=== PATIENT | female | born 2000 | race Caucasian/White ===

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

== ENCOUNTER 2021-04-29 18:14 | Emergency (ER) | payer BC, MEDICAID ==
[~2021-04-29] VITALS: Ht 162 cm; Wt 61.0 kg
[~2021-04-29 18:14] MED LIST: NAPR-915 PO; NITR-65 PO
[2021-04-29 18:18] VITALS: BP 126/88
[2021-04-29] MEDS ORDERED: ONDA4TAB11 PO (18:37)
--- NOTE | 2021-04-29 18:38 | ED Cough/URI ---
General Chief Complaint: Cough/Cold/Flu Symptoms Stated Complaint: VOMITING, SOB, MUSCLE ACHES Source: patient Exam Limitations: no limitations History of Present Illness Date Seen by Provider: Apr 29, 2021 Time Seen by Provider: 18:25 Initial Comments Patient is a 20-year-old female who presents to the emergency department today with a chief complaint of cough, shortness of breath body aches, nausea vomiting, a little diarrhea, loss of taste and smell. Patient states symptom onset was about 5 days ago. She states her little girl was recently diagnosed with Covid and just finished her quarantine yesterday. Patient is also had contact with her mother who has Covid pneumonia. She is not vaccinated. She is currently about 21 weeks with an estimated due date of 09/03/2021. No complaints of dysuria, urgency frequency or abnormal vaginal discharge. All other review of systems reviewed and negative except as stated. Timing/Duration: week Severity/Quality: mild, dry cough Associated Symptoms: cough, lightheadedness, muscle aches, shortness of breath Allergies and Home Medications Allergies Coded Allergies: No Known Drug Allergies (Unverified , 06/24/17) Home Medications Naproxen 500 Mg Tablet, 500 MG PO BID Prescribed by: JANNET RECINOS on 06/25/17 001 Nitrofurantoin Monohyd/M-Cryst 100 Mg Capsule, 100 MG PO BID Prescribed by: JANNET RECINOS on 06/25/1711 Ondansetron 4 Mg Tab.rapdis, 4 MG PO Q8H PRN for nausea Prescribed by: FEDERICO DÍAZ on 04/29/21 1837 Patient Home Medication List Home Medication List Reviewed: Yes Review of Systems Review of Systems Constitutional: see HPI EENTM: no symptoms reported Respiratory: cough, short of breath Cardiovascular: no symptoms reported Gastrointestinal: diarrhea, nausea Genitourinary: no symptoms reported : Yes Expected Date of Delivery: Sep 03, 2021 Musculoskeletal: muscle cramps Skin: no symptoms reported All Other Systems Reviewed Negative Unless Noted: Yes Past Ijqzcjl-Wvewex-Wzwzvb Hx Patient Social History Tobacco Use?: No Smoking Status: Never a Smoker Substance use?: No Alcohol Use?: No Pt feels they are or have been: No Immunizations Up To Date First/Initial COVID19 Vaccinat: 03/13/2021 COVID19 Vaccine Virtualization Consultant: Comfy Seasonal Allergies Seasonal Allergies: No Past Medical History Surgeries: No Respiratory: No Cardiac: No Neurological: No Genitourinary: No Gastrointestinal: No Musculoskeletal: No Endocrine: No HEENT: No Cancer: No Psychosocial: No Integumentary: No Blood Disorders: No Physical Exam Vital Signs - First Documented 04/29/21 18:18 Temp 37.1 Pulse 104 Resp 18 B/P (MAP) 126/88 (101) Pulse Ox 98 O2 Delivery Room Air Capillary Refill : Height: 5'2.00" Weight: 110lbs. oz. 49.034656ye; 14.06 BMI Method:Estimated General Appearance: WD/WN, no apparent distress Eyes: Bilateral Eye Normal Inspection, Bilateral Eye PERRL, Bilateral Eye EOMI Neck: full range of motion, supple, normal inspection Respiratory: lungs clear, normal breath sounds, no respiratory distress, no accessory muscle use Cardiovascular: regular rate, rhythm, tachycardia (105) Gastrointestinal: non tender, soft Neurologic/Psychiatric: alert, normal mood/affect, oriented x 3 Skin: normal color, warm/dry Progress/Results/Core Measures Suspected Sepsis SIRS Temperature: Pulse: Respiratory Rate: Blood Pressure / Mean: Results/Orders Lab Results Laboratory Tests Test 04/29/21 18:25 Range/Units SARS-CoV-2 RNA (RT-PCR) Detected H Not Detecte My Orders Orders - FEDERICO DÍAZ MD Covid 19 Inhouse Test (04/29/21 18:27) Vital Signs/I&O 04/29/21 04/29/21 18:18 18:18 Temp 37.1 Pulse 104 Resp 18 B/P (MAP) 126/88 (101) Pulse Ox 98 O2 Delivery Room Air Room Air Capillary Refill : Progress Note : Time: 18:54 Progress Note heart tones 145. Patient's vital signs are all normal, oxygen saturations 98 to 99% on room air. She is not tachypneic. Heart rate is 104. Blood pressure is good. Departure Impression Primary Impression: COVID-19 Disposition: 01 HOME, SELF-CARE Condition: Stable Departure-Patient Inst. Referrals: NO,LOCAL PHYSICIAN (PCP) Primary Care Physician DUGLAS WOOD DO Patient Instructions: COVID-19 (DC) Add. Discharge Instructions: Drink plenty of fluids to stay well-hydrated. You will need to quarantine for a total of 10 days. Use the Zofran, 4 mg tablets, every 8 hours as needed for nausea and vomiting. You can take [id number] Tylenol extra strength, 2 tablets every 4-6 hours as needed for body aches. Keep your follow-up appointments with Dr. Wood. Return to the emergency department for any new, concerning or worsening symptoms. All discharge instructions reviewed with patient and/or family. Voiced understanding. Scripts Ondansetron (Ondansetron Odt) 4 Mg Tab.rapdis 4 MG PO Q8H PRN for nausea, #20 TAB Prov: FEDERICO DÍAZ MD 04/29/21 FEDERICO DÍAZ MD Apr 29, 2021 18:38
== END 2021-04-29 19:00 | disposition home or self-care (01) ==
LOC: EDUNIT# 18:14 → ER 18:16
DX: O98.512 Other viral diseases complicating pregnancy, second trimester (principal); U07.1 COVID-19; Z3A.21 21 weeks gestation of pregnancy
CPT/HCPCS: 87636

== ENCOUNTER 2021-05-17 21:19 | Outpatient (CLI) | payer MEDICAID ==
[~2021-05-17] VITALS: Ht 162.6 cm; Wt 61.7 kg
[~2021-05-17 21:19] MED LIST changes: +ONDA4TAB11 PO
[2021-05-17] MEDS ORDERED: PREN-142 PO (21:47)
[2021-05-17 21:53] VITALS: BP 121/66
[2021-05-17 21:54] VITALS: BP 121/66
[2021-05-17 22:04] LABS: BILIRUBIN,URINE NEGATIVE (NEGATIVE); CLARITY,URINE CLEAR; COLOR,URINE YELLOW; GLUCOSE, URINE (UA) NEGATIVE (NEGATIVE); KETONES,URINE NEGATIVE (NEGATIVE); LEUKOCYTE ESTERASE ,URINE NEGATIVE (NEGATIVE); NITRITE,URINE NEGATIVE (NEGATIVE); PROTEIN,URINE TRACE (NEGATIVE)
[2021-05-17 22:19] LABS: BACTERIA,URINE MODERATE /HPF
--- NOTE | 2021-05-18 08:16 | Physician Query-Final Dx ---
DAVID AHMADI 05/18/21 0816: Clinic Account Progress/Dx Physician Query: Please give diagnosis Please include # weeks gestation Date of Service May 17, 2021 at 21:19 JOSEMANUEL HUNTER DO 05/18/21 0844: Clinic Account Progress/Dx DIAGNOSIS: Diagnosis 23 week IUP Back pain and pelvic discomfort DAVID AHMADI May 18, 2021 08:16 JOSEMANUEL HUNTER DO May 18, 2021 08:44
== END 2021-05-17 22:33 | disposition home or self-care (01) ==
LOC: WSo 21:19 → LDRP 21:19 → WSo 22:33
PROVIDERS: ATTEND Obstetrics & Gynecology
DX: O26.892 Other specified pregnancy related conditions, second trimester (principal); M54.9 Dorsalgia, unspecified; R10.2 Pelvic and perineal pain; Z3A.24 24 weeks gestation of pregnancy
CPT/HCPCS: 81000; 87088; G0463; 99212

== ENCOUNTER → 2021-05-22 | Outpatient (CLI) | payer MEDICAID ==
[~2021-05-22] MED LIST changes: +PREN-142 PO
--- NOTE | 2021-05-22 15:02 | Diagnostic Imaging Report ---
INDICATION: care. TECHNIQUE: Multiple real-time grayscale images were obtained over the gravid uterus. COMPARISON: None FINDINGS: There is a single live fetus in a cephalic presentation. heart rate was recorded at 143 bpm. Placenta is anterior. Amniotic fluid volume is normal. Cervical length is 4.1 cm. survey does demonstrate some questionable dilatation of the lateral ventricles measuring up to 13 mm. Kidneys, bladder and stomach are unremarkable. There is a four-chamber heart. There is a three-vessel cord with normal insertion. spine is unremarkable. Biometrical measurements are as follows: Biparietal 5.96 cm, age 24 weeks 3 days. Head circumference 21.29 cm, age 23 weeks 3 days. Abdominal circumference 19.80 cm, age 24 weeks 4 days. Femur length 3.88 cm, age 22 weeks 4 days. Sonographic estimate age: 23 weeks 6 days. Sonographic estimated date of delivery: 09/12/2021. Estimated Weight: 611 gm (+/- 89 gm). LMP percentile: 3%. heart rate: 143 beats per minute. number: 1 of 1. IMPRESSION: 1. Single live IUP measuring 23 weeks 6 days gestational age. Estimated date of confinement sonographically is 09/12/2021. 2. Findings suggestive of lateral ventricle dilatation. Close follow-up is recommended. Dictated by: Dictated on workstation # [id number]
== END ==
LOC: RAD 11:00
PROVIDERS: ATTEND Obstetrics & Gynecology
DX: Z34.92 Encounter for supervision of normal pregnancy, unspecified, second trimester (principal); Z3A.23 23 weeks gestation of pregnancy
CPT/HCPCS: 76805

== ENCOUNTER 2021-07-15 20:44 | Inpatient (IN) | payer MEDICAID ==
[2021-07-15] VITALS (16 sets, daily range): BP systolic 121–149; BP diastolic 75–95
[2021-07-15] MEDS ORDERED: BETAMETHASONE ACE/NA PHOS 6 MG/ML (CELESTONE SOLUSPAN) ONE (21:06)
[2021-07-15] MEDS ORDERED: MAGNESIUM 4 GM/100 ML IVPB 100 ML IV ONE (21:07)
[2021-07-15] MEDS ORDERED: MAGNESIUM SULFATE DRIP 500 ML IV ONE (21:07)
[2021-07-15] MEDS ORDERED: AMPICILLIN 2,000 MG/14.8 ML (IV USE) ONE (21:07)
[2021-07-15] MEDS ORDERED: D5 LR IV SOLUTION 1,000 ML IV ONE (21:10)
[2021-07-15] MEDS ORDERED: AZITHROMYCIN 250 MG TAB (ZITHROMAX) PO ONE ×2 (21:11→21:15)
[2021-07-15] MEDS ORDERED: WATER (STERILE) FOR INJECTION 20 ML ONE (21:13)
[2021-07-15] MEDS ORDERED: MAGNESIUM 4 GM/100 ML IVPB 100 ML IV SCH (21:15)
[2021-07-15] MEDS ORDERED: BETAMETHASONE ACE/NA PHOS 6 MG/ML (CELESTONE SOLUSPAN) IM SCH (21:15)
[2021-07-15] MEDS ORDERED: CALCIUM GLUC. 10% 4.65 MEQ/10 ML VIAL IV PRN (21:15)
[2021-07-15] MEDS ORDERED: AMPICILLIN FOR IV USE 2,000 MG in WATER (STERILE) FOR INJECTION 14.8 ML IV ONE (21:15)
[2021-07-15] MEDS ORDERED: D5 LR IV SOLUTION 1,000 ML IV SCH (21:15)
[2021-07-15] MEDS: MAGNESIUM SULFATE DRIP 500 ML IV SCH ×2 (21:27→21:32)
--- NOTE | 2021-07-15 21:27 | History & Physical ---
History and Physical Date Seen by Provider: Jul 15, 2021 Time Seen by Provider: 21:22 This patient is a 20-year-old 2 para [address] Correa Who presents with complaint of spontaneous rupture membranes at about 2030 this evening. She reports a large gush of clear fluid and came fairly promptly to our labor and delivery.Initial evaluation confirmed spontaneous rupture membranes grossly. Patient does complain of contractions she denies bleeding. She has had no problems with this . She had an uncomplicated delivery with her first at 39 weeks gestation. Allergies are none Medications are vitamins Medical social and surgical history is are per the attached antepartum record HEENT exam is normal Neck is supple no lymphadenopathy no thyromegaly Abdomen is gravid soft nontender nondistended Extremities show no clubbing cyanosis. No Homans' sign. Initial pelvic exam by the nurse on presentation confirmed gross rupture membranes with nitrazine positive and a cervix that was dilated 1 cm and thick Bedside ultrasound demonstrates vertex presentation - With scarce amniotic fluid Assessment and plan 32-week gestation was P PROM. Patient has been admitted and is given 12 mg of betamethasone IM Patient is given 2 g of ampicillin IV Patient is given 500 mg of azithromycin p.o. Patient is started on a 4 g magnesium bolusIV which will be followed by 2 g an hour of IV magnesium as well Petersen cath will be placedIV fluids be running for maintenance I have discussed this patient's status with Dr. Miroslava Alonso With [facility] who has agreed to accept this patient in transfer. We will arrange for ground transfer the patient to [facility] We appreciate the assistance of Dr. Alonso with this patient 32 weeks gestation with P PROM Allergies and Home Medications Allergies Coded Allergies: No Known Drug Allergies (Unverified , 06/24/17) Patient Home Medication List Home Medication List Reviewed: Yes Vit No.124/Iron/FA ( Vitamin Tablet) 1 Each Tablet, 1 EACH PO, (Reported) Entered as Reported by: JUAN JOSE CUEVAS on 05/17/212146 ANIBAL CAN MD Jul 15, 2021 21:27
--- NOTE | 2021-07-15 21:29 | Discharge Inst-Surgical ---
Discharge Inst-Surgical Depart Medication/Instructions New, Converted or Re-Newed RX: Other Consults/Follow Up Patient Instructions: Patient transferred via ground ambulance to [facility] To the care of Dr. Miroslava Alonso Orders & Referrals Patient is transferred to [facility] via ground ambulance to the care of Dr. Miroslava Alonso Diagnosis is 32 weeks gestation with P PROM Activity Activity as Tolerated: No ANIBAL CAN MD Jul 15, 2021 21:29
[2021-07-15] MEDS ORDERED: CALCIUM GLUC. 10% 4.65 MEQ/10 ML VIAL ONE (21:44)
== END 2021-07-15 22:26 | disposition short-term general hospital (02) | DRG 833 ==
LOC: WSo 20:44 → LDRP 20:44 → WSo 20:52 → UNDOADMIN 20:52 → LDRP 22:25 → WS 07-16 03:17 → LDRP 07-16 03:17
PROVIDERS: ADMIT Obstetrics & Gynecology; ATTEND Obstetrics & Gynecology
DX: O42.013 Preterm premature rupture of membranes, onset of labor within 24 hours of rupture, third trimester (principal); Z3A.32 32 weeks gestation of pregnancy

== ENCOUNTER 2021-12-22 15:02 | Emergency (ER) | payer MEDICAID ==
[~2021-12-22] VITALS: Ht 162 cm; Wt 63.0 kg
[2021-12-22 15:30] LABS: BASOPHILS % (AUTO) 0 % (0-10); EOSINOPHILS # (AUTO) 0.2 10^3/uL (0.0-0.3); EOSINOPHILS % (AUTO) 2 % (0-10); HEMATOCRIT 39 % (35-52); LYMPHOCYTES # (AUTO) 2.1 10^3/uL (1.0-4.0); LYMPHOCYTES % (AUTO) 20 % (12-44); MEAN CORPUSCULAR HEMOGLOBIN 30 pg (25-34); MEAN CORPUSCULAR HGB CONC 33 g/dL (32-36); MEAN CORPUSCULAR VOLUME 89 fL (80-99); MONOCYTES # (AUTO) 0.6 10^3/uL (0.0-1.0); MONOCYTES % (AUTO) 6 % (0-12); NEUTROPHILS # (AUTO) 7.4 10^3/uL (1.8-7.8); NEUTROPHILS % (AUTO) 72 % (42-75); PLATELET COUNT 282 10^3/uL (130-400); WHITE BLOOD COUNT 10.3 10^3/uL (4.3-11.0)
[2021-12-22] MEDS ORDERED: KETOROLAC 30 MG/ML VIAL IVP ONE (15:30)
--- NOTE | 2021-12-22 15:30 | ED Chest Pain ---
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 Worse on deep inspiration or movement. She had a cough that is productive of some clear mucus but no phlegm. She had a 99 degree temperature this morning. She had influenza about a week or 2 ago and was concerned she is either developing pneumonia or something else. She is on Depo-Provera with her LMP being 12/01/2021, 3 weeks ago. No nausea vomiting diarrhea rash. No trauma. No personal or familial history of coronary disease or blood clots. No swelling or pain in her legs or arms. She does not smoke. Allergies and Home Medications Allergies Coded Allergies: No Known Drug Allergies (Unverified , 06/24/17) Patient Home Medication List Home Medication List Reviewed: Yes Vit No.124/Iron/FA ( Vitamin Tablet) 1 Each Tablet, 1 EACH PO, (Reported) Entered as Reported by: JUAN JOSE CUEVAS on 05/17/212146 Review of Systems Review of Systems Constitutional: No chills, No diaphoresis, No fever; malaise EENTM: No Blurred Vision, No Double Vision Respiratory: Denies Cough, Denies Orthopnea Cardiovascular: See HPI, Chest Pain; Denies Lightheadedness Gastrointestinal: Denies Abdominal Pain, Denies Constipated, Denies Diarrhea Genitourinary: Denies Burning, Denies Discharge Musculoskeletal: No back pain, No joint pain Skin: No pruritus, No rash Psychiatric/Neurological: Denies Anxiety, Denies Depressed All Other Systems Reviewed Negative Unless Noted: Yes Past Lepxxkr-Quaeih-Mmsvgp Hx Patient Social History Tobacco Use?: No Use of E-Cig and/or Vaping dev: No Substance use?: No Seasonal Allergies Seasonal Allergies: No Past Medical History Surgeries: No Respiratory: No Cardiac: No Neurological: No Genitourinary: No Gastrointestinal: No Musculoskeletal: No Endocrine: No HEENT: No Cancer: No Psychosocial: No Integumentary: No Blood Disorders: No Physical Exam Vital Signs Vital Signs - First Documented 12/22/21 15:15 Temp 37.1 Pulse 74 Resp 16 B/P (MAP) 141/99 (113) Pulse Ox 100 O2 Delivery Room Air Capillary Refill : Height, Weight, BMI Height: 5'2.00" Weight: 110lbs. oz. 49.595431ud; 23.33 BMI Method:Estimated General Appearance: No Apparent Distress, WD/WN HEENT: PERRL/EOMI, Pharynx Normal, Moist Mucous Membranes Neck: Full Range of Motion, Normal Inspection Respiratory: No Chest Non Tender (Right anterior costal margin tender to palpation without crepitus, deformity or mass.); Lungs Clear, Normal Breath Soun ds, No Accessory Muscle Use, No Respiratory Distress Cardiovascular: Regular Rate, Rhythm, No Edema, Normal Peripheral Pulses Gastrointestinal: Normal Bowel Sounds, Non Tender, Soft Extremity: Normal Capillary Refill, Normal Inspection, Normal Range of Motion, No Pedal Edema Neurologic/Psychiatric: Alert, Oriented x3, No Motor/Sensory Deficits, Normal Mood/Affect Skin: Normal Color, Warm/Dry Progress/Results/Core Measures Results/Orders Lab Results Laboratory Tests Test 12/22/21 15:15 12/22/21 15:20 Range/Units Urine Color YELLOW Urine Clarity CLEAR Urine pH 7.0 5-9 Urine Specific [place] 1.020 1.016-1.022 Urine Protein NEGATIVE NEGATIVE Urine Glucose (UA) NEGATIVE NEGATIVE Urine Ketones NEGATIVE NEGATIVE Urine Nitrite NEGATIVE NEGATIVE Urine Bilirubin NEGATIVE NEGATIVE Urine Urobilinogen 0.2 < = 1.0 MG/DL Urine Leukocyte Esterase 1+ H NEGATIVE Urine RBC (Auto) NEGATIVE NEGATIVE Urine RBC NONE /HPF Urine WBC 2-5 /HPF Urine Squamous Epithelial Cells 5-10 /HPF Urine Crystals PRESENT H /LPF Urine Amorphous Sediment MOD RENAE PHOSPHATE H /LPF Urine Bacteria FEW H /HPF Urine Casts NONE /LPF Urine Mucus NEGATIVE /LPF Urine Culture Indicated YES White Blood Count 10.3 4.3-11.0 10^3/uL Red Blood Count 4.41 3.80-5.11 10^6/uL Hemoglobin 13.0 11.5-16.0 g/dL Hematocrit 39 35-52 % Mean Corpuscular Volume 89 80-99 fL Mean Corpuscular Hemoglobin 30 25-34 pg Mean Corpuscular Hemoglobin Concent 33 32-36 g/dL Red Cell Distribution Width 12.9 10.0-14.5 % Platelet Count 282 130-400 10^3/uL Mean Platelet Volume 11.0 9.0-12.2 fL Immature Granulocyte % (Auto) 0 % Neutrophils (%) (Auto) 72 42-75 % Lymphocytes (%) (Auto) 20 12-44 % Monocytes (%) (Auto) 6 0-12 % Eosinophils (%) (Auto) 2 0-10 % Basophils (%) (Auto) 0 0-10 % Neutrophils # (Auto) 7.4 1.8-7.8 10^3/uL Lymphocytes # (Auto) 2.1 1.0-4.0 10^3/uL Monocytes # (Auto) 0.6 0.0-1.0 10^3/uL Eosinophils # (Auto) 0.2 0.0-0.3 10^3/uL Basophils # (Auto) 0.0 0.0-0.1 10^3/uL Immature Granulocyte # (Auto) 0.0 0.0-0.1 10^3/uL Sodium Level 138 135-145 MMOL/L Potassium Level 4.1 3.6-5.0 MMOL/L Chloride Level 107 98-107 MMOL/L Carbon Dioxide Level 20 L 21-32 MMOL/L Anion Gap 11 5-14 MMOL/L Blood Urea Nitrogen 13 7-18 MG/DL Creatinine 0.83 0.60-1.30 MG/DL Estimat Glomerular Filtration Rate 102 BUN/Creatinine Ratio 16 Glucose Level 89 70-105 MG/DL Calcium Level 9.8 8.5-10.1 MG/DL My Orders Orders - SUJIT FITZGERALD Ua Culture If Indicated (12/22/21 15:10) Urine Bedside (12/22/21 15:10) Chest Pa/Lat (2 View) (12/22/21 15:20) Cbc With Automated Diff (12/22/21 15:20) Basic Metabolic Panel (12/22/21 15:20) Ed Iv/Invasive Line Start (12/22/21 15:20) Ekg Tracing (12/22/21 15:20) Ketorolac Injection (Toradol Injection) (12/22/21 15:30) Urine Culture (12/22/21 15:15) Medications Given in ED Current Medications Medications Dose Ordered Sig/Coco Route Start Time Stop Time Status Last Admin Dose Admin Ketorolac Tromethamine 30 mg ONCE ONCE IVP 12/22/21 15:30 12/22/21 15:31 DC 12/22/21 15:32 30 MG Vital Signs/I&O 12/22/21 15:15 Temp 37.1 Pulse 74 Resp 16 B/P (MAP) 141/99 (113) Pulse Ox 100 O2 Delivery Room Air Progress Progress Note : Time: 15:26 Progress Note Toradol for her discomfort, two-view chest x-ray to help rule out a pneumonia along with some basic labs. Sounds like she is having pleuritic chest pain. Aseptic vital signs. EKG to rule out pericarditis/myocarditis. Wells score for PE: 0.0 points. Low risk group: 1.3% chance of PE in an ED population. PERC rule: 0 criteria. No need for further workup, as <2% chance of PE. If no criteria are positive and clinicians pre-test probability is <15%, PERC Rule criteria are satisfied. Initial ECG Impression Date: Dec 22, 2021 Initial ECG Impression Time: 15:23 Initial ECG Rate: 61 Initial ECG Rhythm: Normal Sinus Initial ECG Intervals: Normal Initial ECG Impression: Normal Initial ECG Comparisson: No Previous ECG Available Comment Normal sinus rhythm without clinically evident ST elevation or depression. Diagnostic Imaging Diagonstic Imaging: Xray Plain Films/CT/US/NM/MRI: chest (2v) Comments [facility], [place] NAME: SANGEETHA SHEPPARD [facility] REC#: [id number] PT STATUS: REG ER : 2000 PHYSICIAN: SUJIT FITZGERALD MD ADMIT DATE: 12/22/21/ER Draft Date of Exam:12/22/21 CHEST PA/LAT (2 VIEW) INDICATION: Right-sided pain. TIME OF EXAM: 3:48 p.m. COMPARISON: No prior studies are available for comparison. FINDING: The heart size is normal. The pulmonary vascularity is unremarkable. The lungs are clear. No infiltrate, effusion or pneumothorax is detected. IMPRESSION: No acute cardiopulmonary process is detected. Dictated on workstation # [id number] Dict: 12/22/21 1555 Trans: 12/22/21 1557 [id number] Interpreted by: MABLE LANDIS MD Electronically signed by: Reviewed: Reviewed by Me Departure Impression Primary Impression: Pleuritic chest pain Disposition: 01 HOME, SELF-CARE Condition: Stable Departure-Patient Inst. Decision time for Depature: 16:22 Referrals: NO,LOCAL PHYSICIAN (PCP/Family) Primary Care Physician Patient Instructions: Pleuritic Chest Pain (DC) Add. Discharge Instructions: New vapor rubs and topical creams may be helpful for chest wall pain. Humidifiers can help reduce the need to cough which may reduce your discomfort from the chest wall pain. NSAIDs such as naproxen 500 mg twice a day for a week or so will usually help resolve the pain. Prednisone 2 tablets twice a day for the next 5 days to reduce the inflammation in your chest wall and therefore the pain. If you are still having symptoms by next week then I suggest you follow-up with your primary care doctor for reevaluation. Return to the ER if you begin to have significant shortness of air or worsening of your pain. Scripts Naproxen (Naprosyn) 500 Mg Tablet 500 MG PO BID, #30 TAB 0 Refills Prov: SUJIT FITZGERALD 12/22/21 Prednisone (Prednisone) 20 Mg Tab 40 MG PO DAILY for 5 Days, #10 TAB 0 Refills Prov: SUJIT FITZGERALD 12/22/21 SUJIT FITZGERALD Dec 22, 2021 15:30
[2021-12-22 15:34] LABS: BILIRUBIN,URINE NEGATIVE (NEGATIVE); CLARITY,URINE CLEAR; COLOR,URINE YELLOW; GLUCOSE, URINE (UA) NEGATIVE (NEGATIVE); KETONES,URINE NEGATIVE (NEGATIVE); LEUKOCYTE ESTERASE ,URINE 1+ (NEGATIVE); NITRITE,URINE NEGATIVE (NEGATIVE); PROTEIN,URINE NEGATIVE (NEGATIVE)
[2021-12-22 15:46] LABS: POTASSIUM 4.1 MMOL/L (3.6-5.0)
[2021-12-22 15:47] LABS: CALCIUM 9.8 MG/DL (8.5-10.1)
[2021-12-22 15:52] LABS: AMORPHOUS SEDIMENT,UR MOD AMOR PHOSPHATE /LPF; BACTERIA,URINE FEW /HPF
[2021-12-22 15:52] LABS: CREATININE SERUM 0.83 MG/DL (0.60-1.30)
--- NOTE | 2021-12-22 15:58 | Diagnostic Imaging Report ---
INDICATION: Right-sided pain. TIME OF EXAM: 3:48 p.m. COMPARISON: No prior studies are available for comparison. FINDING: The heart size is normal. The pulmonary vascularity is unremarkable. The lungs are clear. No infiltrate, effusion or pneumothorax is detected. IMPRESSION: No acute cardiopulmonary process is detected. Dictated by: Dictated on workstation # [id number]
[2021-12-22] MEDS ORDERED: PRD20T PO (16:31)
[2021-12-22] MEDS ORDERED: NAPR-1071 PO (16:31)
[2021-12-22 16:38] VITALS: BP 121/74
== END 2021-12-22 16:38 | disposition home or self-care (01) ==
LOC: EDUNIT# 15:02 → ER 15:06
DX: R07.81 Pleurodynia (principal)
CPT/HCPCS: 36415; 71046; 80048; 81000; 84703; 85025; 87088; 93005

== ENCOUNTER 2022-09-01 19:32 | Emergency (ER) | payer BC ==
[~2022-09-01] VITALS: Ht 167 cm; Wt 63.1 kg
[~2022-09-01 19:32] MED LIST changes: +NAPR-1071 PO; +PRD20T PO
[2022-09-01] MEDS ORDERED: NEOMY/POLYM/HC (CORTISPORIN) 10 ML BTL OT SCH (20:10)
[2022-09-01] MEDS ORDERED: AMOX-355 PO ×2 (20:14→20:19)
--- NOTE | 2022-09-01 20:14 | ED EENT ---
History of Present Illness General Chief Complaint: Ear Problems Stated Complaint: EAR PAIN Nursing Triage Note: ear pain and pressure both ears, states loss of balance. Source: patient Exam Limitations: no limitations History of Present Illness Date Seen by Provider: Sep 01, 2022 Time Seen by Provider: 20:10 Initial Comments To ER with left ear pain for the past 3 to 4 days. The right ear feels full but is nontender Timing/Duration: abrupt Severity: moderate Location: ear (L) Associated Symptoms: denies symptoms Allergies and Home Medications Allergies Coded Allergies: No Known Drug Allergies (Unverified , 06/24/17) Patient Home Medication List Home Medication List Reviewed: Yes Naproxen (Naprosyn) 500 Mg Tablet, 500 MG PO BID Prescribed by: SUJIT FITZGERALD on 12/22/21 163 Prednisone (Prednisone) 20 Mg Tab, 40 MG PO DAILY Prescribed by: SUJIT FITZGERALD on 12/22/21 1631 Vit No.124/Iron/FA ( Vitamin Tablet) 1 Each Tablet, 1 EACH PO, (Reported) Entered as Reported by: JUAN JOSE CUEVAS on 05/17/212146 Review of Systems Review of Systems Constitutional: see HPI Eyes: No Symptoms Reported Ears: See HPI, Pain Nose: no symptoms reported Mouth: no symptoms reported Throat: no symptoms reported Respiratory: no symptoms reported Cardiovascular: no symptoms reported Musculoskeletal: no symptoms reported Past Plvkijw-Kvabbd-Cxbpns Hx Patient Social History Tobacco Use?: No Use of E-Cig and/or Vaping dev: Yes E-Cig or Vaping type used: Nicotine Immunizations Up To Date Influenza Vaccine Up-to-Date: No; Not Current First/Initial COVID19 Vaccinat: 03/13/2021 COVID19 Vaccine [employer] Member: LUKE Seasonal Allergies Seasonal Allergies: No Past Medical History Surgeries: No Respiratory: No Cardiac: No Neurological: No Genitourinary: No Gastrointestinal: No Musculoskeletal: No Endocrine: No HEENT: No Cancer: No Psychosocial: No Integumentary: No Blood Disorders: No Physical Exam Vital Signs Vital Signs - First Documented 09/01/22 19:36 Temp 36.9 Pulse 90 Resp 20 B/P (MAP) 150/103 (119) Pulse Ox 98 Height, Weight, BMI Height: 5'2.00" Weight: 110lbs. oz. 49.339070ms; 22.00 BMI Method:Estimated General Appearance: WD/WN, no apparent distress Eyes: bilateral eye normal inspection, bilateral eye PERRL, bilateral eye EOMI Ears: right ear canal normal, right ear TM normal; left ear TM dull, left ear TM red, left ear other (Canal swelling and tender with any movement of the auricle); bilateral ear auricle normal Mouth/Throat: normal mouth inspection, pharynx normal Neck: non-tender, full range of motion Cardiovascular: regular rate, rhythm, no murmur Gastrointestinal: normal bowel sounds, non tender, soft Neurologic/Psychiatric: alert, normal mood/affect, oriented x 3 Skin: normal color, warm/dry Progress/Results/Core Measures Results/Orders My Orders Orders - PARAMJIT HARVEY APRN Amoxicillin/Clavulanate Tablet (Augmenti (09/01/22 20:15) Neomy/Poly/Hc Otic Suspension (Cortispor (09/01/22 20:10) Vital Signs/I&O 09/01/22 19:36 Temp 36.9 Pulse 90 Resp 20 B/P (MAP) 150/103 (119) Pulse Ox 98 Blood Pressure Mean: 119 Departure Impression Primary Impression: Left otitis externa Additional Impression: Otitis media Disposition: HOME, SELF-CARE Condition: Stable Departure-Patient Inst. Decision time for Depature: 20:13 Referrals: NO,LOCAL PHYSICIAN (PCP/Family) Primary Care Physician Patient Instructions: Ear Infections (Otitis Media) in Adults (DC) Add. Discharge Instructions: 1. Use both Tylenol and ibuprofen for pain control. Try warm compresses to the ear. Instill the antibiotic eardrops, 4 drops every 8 hours for 5 days. Take the oral antibiotics as well. All discharge instructions reviewed with patient and/or family. Voiced understanding. Scripts Amoxicillin/Potassium Clav (Augmentin 500-125 Tablet) 500 Mg-125 Mg Tablet 1 EACH PO BID, #14 TAB Prov: PARAMJIT HARVEY APRN 09/01/22 Work/School Note: Work Release Form Date Seen in the Emergency Department: Sep 01, 2022 Return to Work: Sep 03, 2022 PARAMJIT HARVEY APRN Sep 01, 2022 20:14
[2022-09-01] MEDS ORDERED: AUGMENTIN 875 MG TAB (AMOXICILLIN/CLAVULANATE) PO SCH (20:15)
[2022-09-01] MEDS ORDERED: OFLO5DRO33 RIGHT EAR (20:19)
[2022-09-01 20:20] VITALS: BP 150/103
== END 2022-09-01 20:20 | disposition home or self-care (01) ==
LOC: EDUNIT# 19:32 → ER 19:35
DX: H60.92 Unspecified otitis externa, left ear (principal); H66.92 Otitis media, unspecified, left ear; F17.290 Nicotine dependence, other tobacco product, uncomplicated; Z28.311 Partially vaccinated for COVID-19
CPT/HCPCS: 99283